=== PATIENT | female | born 1965 | race Asian ===

== ENCOUNTER 2018-09-09 23:48 | Emergency (ER) | payer OTHER ==
[2018-09-10 00:20] VITALS: BMI 29.0
[2018-09-10] MEDS ORDERED: SODIUM CHLORIDE 1,000 ML IV STA (01:07)
--- NOTE | 2018-09-10 01:09 | PDOC ---
Attending Attestation - HPI HPI: 09/10/18 01:26 The patient is a 53 year old female with hypothyroidism and fibroids who presents to the ED with complaints of vaginal bleeding, lightheadedness and palpitations. She states that three weeks ago, 15 days after her LMP, she began having light spotting which has since turned into heavy bleeding with clots, saturating 3-6 pads/day. She reports going for a biopsy which she has not gotten the results yet and was also started on control and tranexamic acid. However, this morning she developed palpitations and lightheadedness and was advised to come to the ED to check her H&H levels. Denies any abdominal pain , nausea, or vomiting. Denies any syncope, headache, focal neurological deficits, chest pain or shortness of breath. Denies any fevers or chills. - Medical Decision Making 09/10/18 01:31 Documentation prepared by Ingris Willoughby, acting as medical claims representative for Corina Jolly MD. <Ingris Willoughby - Last Filed: 09/10/18 01:31> - Resident Resident Name: Danielle Suarez - ED Attending Attestation I have performed the following: I have examined & evaluated the patient, The case was reviewed & discussed with the resident, I agree w/resident's findings & plan - Physicial Exam PE: 09/10/18 03:50 Agree with resident exam; Pt is borderline tachycardic @ 100bpm; she doesn't appear particularly pale; eyelids and fingertips are pink. Abd soft NT, ND Pt has no flank pain. Pt has minimal blood in the vault. - Medical Decision Making 09/10/18 22:54 repeat CBC at 4 hrs is stable. 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
[2018-09-10 01:39] LABS: BASO % 0.3 % (0-2.0); EOS % 8.3 % (0-4.5); HEMATOCRIT 29.9 % (32.4-45.2); HEMOGLOBIN 9.8 GM/dL (10.7-15.3); LYMPH % 28.3 % (8-40); MCH 28.4 pg (25.7-33.7); MCHC 32.9 g/dl (32.0-36.0); MEAN CELL VOLUME 86.3 fl (80-96); MEAN PLT VOLUME 9.1 fl (7.5-11.1); MONO % 7.9 % (3.8-10.2); NEUT % 55.2 % (42.8-82.8); PLATELET COUNT 421 K/MM3 (134-434); RBC 3.47 M/mm3 (3.60-5.2); WHITE BLOOD COUNT 8.2 K/mm3 (4.0-10.0)
[2018-09-10 01:56] LABS: URINE APPEARANCE CLEAR; URINE BILIRUBIN NEGATIVE (<2.0 mg/dL); URINE COLOR COLORLESS; URINE GLUCOSE (UA) NEGATIVE (NEGATIVE); URINE KETONE NEGATIVE (NEGATIVE); URINE LEUK ESTERASE NEGATIVE (NEGATIVE); URINE NITRITE NEGATIVE (NEGATIVE); URINE PROTEIN NEGATIVE (NEGATIVE); URINE UROBILINOGEN NEGATIVE mg/dL (0.2-1.0)
[2018-09-10 01:57] LABS: HCG,QUALITATIVE URINE Negative
[2018-09-10 02:03] LABS: ALBUMIN 3.8 g/dl (3.4-5.0); ALK PHOS 80 U/L (45-117); ANION GAP 7 MMOL/L (8-16); BILIRUBIN,TOTAL 0.2 mg/dL (0.2-1); BLOOD UREA NITROGEN 12 mg/dL (7-18); CALCIUM 8.4 mg/dL (8.5-10.1); CHLORIDE 105 mmol/L (98-107); CO2 25 mmol/L (21-32); CREATININE 0.9 mg/dL (0.55-1.3); GLUCOSE,RANDOM 118 mg/dL (74-106); POTASSIUM 3.8 mmol/L (3.5-5.1); SGOT/AST 23 U/L (15-37); SGPT/ALT 30 U/L (13-61); SODIUM 137 mmol/L (136-145); TOT PROT 7.5 g/dl (6.4-8.2)
--- NOTE | 2018-09-10 02:09 | PDOC ---
History of Present Illness - General Chief Complaint: Vaginal Bleeding Stated Complaint: VAGINAL BLEEDING Time Seen by Provider: 09/10/18 00:14 History Source: Patient Exam Limitations: Language Barrier - History of Present Illness Initial Comments: 09/10/18 02:04 Pt is a 53yo f with PMH of hypothyroid, uterine fibroid presenting to ED with complaints of vaginal bleeding, palpitations, headache/lightheadedness. Pt has been having periods monthly that last about 1 week but around 3 weeks ago, pt noticed spotting for 5 days followed by heavy bleeding with clots. Pt states she uses around 3-6 or 7 pads a day. She went to [facility] on Tuesday. She had an ultrasound and biopsy done. Pt states she would not get results for a while. She was given OCP and tranexamic acid. She was told that if she was experiencing palpitations that she should come to the ED. Pt is having some LLQ abdominal pain as well. Denies n/v/d, fevers, urinary symptoms, syncope, sob, chest pain, changes in vision, neurological deficits. She used 3 pads today. 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: H PMH: see hpi PSH: thyroid surgery, Meds: levothyroxine, ocp, tranexamic acid Social: denies Allergies: nkda Past History - Past Medical History Allergies/Adverse Reactions: Allergies Allergy/AdvReac Type Severity Reaction Status Date / Time No Known Allergies Allergy Verified 09/10/18 00:18 Home Medications: Ambulatory Orders Levothyroxine [Synthroid -] 125 mcg PO DAILY 09/10/18 COPD: No CHF: No HTN: No Hypercholesterolemia: No Thyroid Disease: Yes - Reproductive History (#): 2 Para: 2 - Immunization History Immunization Up to Date: Yes - Suicide/Smoking/Psychosocial Hx Smoking History: Never smoked Have you smoked in the past 12 months: No Information on smoking cessation initiated: No Hx Alcohol Use: No Drug/Substance Use Hx: No Review of Systems - Review of Systems Constitutional: No: Symptoms Reported HEENTM: No: Symptoms Reported Respiratory: No: Symptoms reported Cardiac (ROS): Yes: Lightheadedness, Palpitations. No: Chest Pain, Syncope ABD/GI: Yes: Abdominal cramping (LLQ). No: Constipated, Diarrhea, Nausea, Vomiting : Yes: Other (vaginal bleeding) Musculoskeletal: No: Symptoms Reported Integumentary: No: Symptoms Reported Neurological: Yes: Headache. No: Numbness, Tingling, Tremors *Physical Exam - Vital Signs Last Vital Signs Temp Pulse Resp BP Pulse Ox 98.0 F 95 H 20 139/78 99 09/10/18 00:19 09/10/18 00:19 09/10/18 00:19 09/10/18 00:19 09/10/18 00:19 - Physical Exam General Appearance: Yes: Nourished, Appropriately Dressed. No: Apparent Distress HEENT: positive: EOMI, JOLENE. negative: Pale Conjunctivae Neck: positive: Trachea midline, Supple. negative: Lymphadenopathy (R), Lymphadenopathy (L) Respiratory/Chest: positive: Lungs Clear, Normal Breath Sounds. negative: Crackles, Rales, Rhonchi, Stridor, Wheezing Cardiovascular: positive: Regular Rhythm, S1, S2, Tachycardia. negative: Edema , JVD, Murmur Female Pelvic Exam: positive: normal external exam, cervical os closed, vaginal bleeding. negative: adnexal tenderness Gastrointestinal/Abdominal: positive: Normal Bowel Sounds, Soft. negative: Distended, Guarding, Rebound, Tenderness Musculoskeletal: negative: CVA Tenderness Extremity: positive: Normal Capillary Refill Integumentary: positive: Normal Color, Dry, Warm. negative: Pale Neurologic: positive: dispensing optician II-XII NML intact, Fully Oriented, Alert, Normal Mood/ Affect, Normal Response, Motor Strength 5/5 ED Treatment Course - LABORATORY CBC & Chemistry Diagram: 09/10/18 05:58 09/10/18 00:21 - ADDITIONAL ORDERS Additional order review: Laboratory Results 09/10/18 09/10/18 09/10/18 01:23 00:21 00:21 Sodium 137 Potassium 3.8 Chloride 105 Carbon Dioxide 25 Anion Gap 7 L BUN 12 Creatinine 0.9 Creat Clearance w eGFR > 60 Random Glucose 118 H Calcium 8.4 L Total Bilirubin 0.2 AST 23 ALT 30 Alkaline Phosphatase 80 Troponin I < 0.02 Total Protein 7.5 Albumin 3.8 Urine HCG, Qual Negative Medical Decision Making - Medical Decision Making Pt is a 53yo f with PMH of hypothyroid, uterine fibroid presenting to ED with complaints of vaginal bleeding, palpitations, headache/lightheadedness. Vitals: wnl PE: closed os with minimal blood in vaginal vault, normal conjunctiva, not pale. Will check cbc for hgb level. No priors to compare to. EKG, UA. will give fluids. hgb 9.8. Will check again in 4 hours 09/10/18 06:14 EKG: nsr Hgb 8.4 however other counts also decreased most likely due to dilutional effects. Pt reported less bleeding. Has pcp follow up, vitals wnl, ambulatory. Can be dc home. pt agreed to plan. *DC/Admit/Observation/Transfer Diagnosis at time of Disposition: Vaginal bleeding - Discharge Dispostion Disposition: HOME Condition at time of disposition: Good Decision to Admit order: No - Referrals Referrals: Bo Dia [Primary Care Provider] - Yakelin Lomax DO [Staff Physician] - - Patient Instructions Printed Discharge Instructions: DI for Vaginal Bleeding Additional Instructions: You were seen here today for evaluation of vaginal bleeding. All of your tests were normal. Please continue to see your stockbroker for further management of your symptoms. Come back to the emergency room if: bleeding gets worse, you feel lightheaded, you have palpitations, you have pain or if any new concerning symptom develops. Thank you - Post Discharge Activity
[2018-09-10 02:13] LABS: EPI CELLS RARE /HPF (FEW)
[2018-09-10 02:56] LABS: INR 0.82 (0.83-1.09); PROTHROMBIN TIME (PATIENT) 9.7 SEC (9.7-13.0)
[2018-09-10 02:58] LABS: ACTIVATED PTT 18.6 SECONDS (25.2-36.5)
[2018-09-10 06:08] LABS: BASO % 1.4 % (0-2.0); EOS % 8.5 % (0-4.5); HEMOGLOBIN 8.6 GM/dL (10.7-15.3); LYMPH % 25.1 % (8-40); MCH 28.5 pg (25.7-33.7); MCHC 33.1 g/dl (32.0-36.0); MEAN CELL VOLUME 86.1 fl (80-96); MEAN PLT VOLUME 8.7 fl (7.5-11.1); PLATELET COUNT 344 K/MM3 (134-434); RBC 3.02 M/mm3 (3.60-5.2); WHITE BLOOD COUNT 7.4 K/mm3 (4.0-10.0)
[2018-09-10 06:47] VITALS: BP 126/78; PULSE 99; TEMP 98.5
--- NOTE | 2018-09-10 11:06 | EKG ---
Test Reason : Blood Pressure : / mmHG Vent. Rate : 083 BPM Atrial Rate : 083 BPM P-R Int : 156 ms QRS Dur : 070 ms QT Int : 372 ms P-R-T Axes : 053 030 027 degrees QTc Int : 437 ms NORMAL SINUS RHYTHM NORMAL ECG NO PREVIOUS ECGS AVAILABLE Confirmed by BERNABE MCGUIRE MD ([id number]) on 09/10/2018 11:06:13 AM Referred By: Confirmed By:BERNABE MCGUIRE MD
== END 2018-09-10 06:48 | disposition home or self-care (01) ==
LOC: JER 23:48
PROC: 3E0337Z Introduction of Electrolytic and Water Balance Substance into Peripheral Vein, Percutaneous Approach (ICD-10-PCS; principal; 2018-09-09)
DX: N93.8 Other specified abnormal uterine and vaginal bleeding (principal); E03.9 Hypothyroidism, unspecified; Z86.2 Personal history of diseases of the blood and blood-forming organs and certain disorders involving the immune mechanism
CPT/HCPCS: 36415; 80053; 81003; 81015; 84443; 84484; 84703; 85025; 85610; 85730; 86850; 86900; 86901; 93005; 93010; 99284-25; J7030

== ENCOUNTER 2018-10-05 12:32 | Day surgery (SDC) | payer OTHER ==
[2018-10-03 12:43] VITALS: BMI 27.9
[2018-10-05] MEDS ORDERED: IBUPROFEN 800 MG/8 ML IJ IVPB PRN (14:00)
[2018-10-05] MEDS ORDERED: LACTATED RINGERS SOLUTION 1,000 ML IV SCH (14:00)
[2018-10-05] MEDS ORDERED: ACETAMINOPHEN 325 MG TABLET (FP) PO PRN (14:00)
--- NOTE | 2018-10-05 14:00 | HP ---
History & Physical Update - History History: No Change - Physical Physical: No Change - Assessment Assessment: No Change - Plan Plan: No Change (Agree with H&P from 10/04/18 - AUB/endo polyp for hysteroscopic resection)
[2018-10-05] MEDS ORDERED: KETOROLAC TROMETHAMINE 30 MG/1 ML VIAL ONE (14:06)
[2018-10-05] MEDS ORDERED: PROPOFOL 20 ML ONE (14:06)
[2018-10-05] MEDS ORDERED: DEXAMETHASONE SOD PHOSPHATE 4 MG/1 ML VIAL ONE (14:06)
[2018-10-05] MEDS ORDERED: oxyCODONE HCL 5 MG TABLET PO PRN (14:54)
[2018-10-05] MEDS ORDERED: PROMETHAZINE HCL 25 MG/1 ML VIAL IVPUSH PRN (14:54)
[2018-10-05] MEDS ORDERED: ONDANSETRON 4 MG/2 ML VIAL IVPUSH PRN (14:54)
[2018-10-05] MEDS ORDERED: oxyCODONE HCL 5 MG TABLET ONE (17:05)
[2018-10-05 18:11] VITALS: BP 130/70; PULSE 68; TEMP 97.8
--- NOTE | 2018-10-09 17:32 | PATH ---
Surgical Pathology Report Patient Name: SERGIO DOE [facility]. Rec. #: [id number] /Age/Gender: 1965 (Age: 53) / F Account: [id number] Location: [facility] SURGICAL Taken: 10/05/2018 Received: 10/06/2018 Reported: 10/09/2018 Physicians: Yakelin Lomax M.D. Specimen(s) Received UTERINE CONTENTS/ POLYP AND ENDOMETRIAL CURETTINGS Clinical History Endometrial polyp/abnormal bleeding Final Diagnosis ENDOMETRIAL CURETTINGS, DILATION AND CURETTAGE: SMALL ENDOMETRIAL POLYP AND ENDOMETRIUM WITH GLANDULAR AND STROMAL BREAKDOWN ADMIXED WITH BLOOD. Electronically Signed Nalini Mcbride M.D. Gross Description Received in formalin labeled "polyp, endometrial curettings," is a 3.0 x 2.0 x 0.3 cm aggregate of fields red soft tissue fragments admixed with blood clot. The formalin is filtered and the specimen is entirely submitted in one cassette. /10/06/2018 saudi10/06/2018
--- NOTE | 2018-10-25 12:27 | OP ---
Operative Note - Note: Operative Date: 10/05/18 (dictatoin [id number]) Pre-Operative Diagnosis: Abnormal uterine bleeding, endometrial polyp Operation: Hysteroscopic polypectomy, suction D&C Findings: endometrial polyp Post-Operative Diagnosis: Same as Pre-op Surgeon: Yakelin Lomax Specimens Removed: endometrial polyp Estimated Blood Loss (mls): 5 Operative Report Dictated: Yes
--- NOTE | 2018-10-26 07:31 | OP ---
DATE OF OPERATION: 10/05/2018 PREOPERATIVE DIAGNOSIS: Abnormal uterine bleeding and endometrial polyps. POSTOPERATIVE DIAGNOSIS: Abnormal uterine bleeding and endometrial polyps. PROCEDURE: Hysteroscopic polypectomy, suction dilatation and curettage. SURGEON: Yakelin Lomax MD ANESTHESIA: General by Candido Mitchell MD. COMPLICATIONS: None. ESTIMATED BLOOD LOSS: 5 mL. SPECIMENS REMOVED: Endometrial polyps. COUNTS: Sponge,needle, and instrument counts correct. DISPOSITION: Stable to PACU. BRIEF HISTORY AND PROCEDURE: Patient is a 53-year-old female who had been seen in the office with complaints of abnormal uterine bleeding. Her endometrial biopsy was benign. However, she stated she continued to have bleeding, and on hysterosonogram was noted to have endometrial polyps. She elected to undergo resection and consents were signed in the office. The patient was admitted to the hospital October 05, 2018, and consents were reconfirmed. She was taken back to the operating room, put in the dorsal lithotomy position and given anesthesia by Dr. Candido Mitchell without difficulty. She was prepped and draped in the usual sterile fashion, and a hard time-out was performed. A speculum was placed inside the vagina, and the anterior lip of the cervix was grasped with a single-tooth tenaculum, and the cervix was dilated to accommodate an resectoscope, which was advanced to the fundus of the uterus. Endometrial polyps were noted, which were resected in several passes with the resectoscope device. A suction dilatation and curettage was performed to remove all remaining uterine tissue and sharp dilatation and curettage was performed to get adequate uterine sampling. One final look with the hysteroscope revealed no evidence of uterine perforation or trauma. All instruments were removed from the vagina. Sponge and instrument counts were reported to be correct. Bleeding was noted from the tenaculum sites, and a single stitch of a 3-0 Vicryl was placed to achieve hemostasis. Instrument, sponge, and needle counts were reported to be correct. The patient tolerated the procedure well and was recovering in stable condition in the PACU after the procedure. YAKELIN LOMAX DO /[id number]
== END 2018-10-05 18:12 | disposition home or self-care (01) ==
LOC: JASU-SURG 12:32
PROVIDERS: ATTEND Obstetrics & Gynecology
PROC: 0UJD8ZZ Inspection of Uterus and Cervix, Via Natural or Artificial Opening Endoscopic (ICD-10-PCS; 2018-10-05)
PROC: 0UB97ZX Excision of Uterus, Via Natural or Artificial Opening, Diagnostic (ICD-10-PCS; principal; 2018-10-05 14:30)
PROC: 0UDB7ZX Extraction of Endometrium, Via Natural or Artificial Opening, Diagnostic (ICD-10-PCS; 2018-10-05 14:30)
DX: N93.9 Abnormal uterine and vaginal bleeding, unspecified (principal); N84.0 Polyp of corpus uteri
CPT/HCPCS: 84703; 86850; 86900; 86901; 88305-TC; 94760

== ENCOUNTER 2019-03-19 15:13 | Emergency (ER) | payer OTHER ==
[2019-03-19 15:25] VITALS: BMI 26.6
--- NOTE | 2019-03-19 16:33 | PDOC ---
History of Present Illness - General Chief Complaint: Vaginal Bleeding Stated Complaint: VAGINAL BLEEDING - History of Present Illness Initial Comments: The pt is a 53F w/ a history of hypothyroidism, previous uterine polyp s/p polypectomy and D&C in 10/2018 who presents for evaluation of 2 weeks of vaginal bleeding. The pt was seen by Dr. Lomax on Tuesday where she reports having a normal TVUS. She presents today for concern of persistent bleeding. She endorses 3 days of associated lightheadedness but denies LOC or fall. She reports similar bleeding with her previous uterine polyp. Denies fevers/chills, chest pain, SOB, abdominal pain, N/V/C/D, dysuria, hematuria, or blood in her stool. Denies unintentional weight loss 03/19/19 16:53 Past History - Past Medical History Allergies/Adverse Reactions: Allergies Allergy/AdvReac Type Severity Reaction Status Date / Time No Known Allergies Allergy Verified 03/19/19 15:18 Home Medications: Ambulatory Orders Levothyroxine Sodium [Synthroid] 137 mcg PO DAILY 03/19/19 Norethindrone-E.estradiol-Iron [Taytulla 1 mg-20 Mcg Capsule] 1 each PO DAILY Sertraline HCl 25 mg PO DAILY 03/19/19 Tranexamic Acid 1,300 mg PO TID 03/19/19 Anemia: Yes (due to bleeding) Asthma: No Cancer: No Cardiac Disorders: No CVA: No COPD: No CHF: No Dementia: No Diabetes: No GI Disorders: No Disorders: No HTN: No Hypercholesterolemia: No Liver Disease: No Seizures: No Thyroid Disease: Yes - Reproductive History (#): 2 Para: 2 - Immunization History Immunization Up to Date: Yes - Suicide/Smoking/Psychosocial Hx Smoking History: Never smoked Have you smoked in the past 12 months: No Information on smoking cessation initiated: No Hx Alcohol Use: No Drug/Substance Use Hx: No Substance Use Type: None Hx Substance Use Treatment: No Review of Systems - Review of Systems Able to Perform ROS?: Yes Comments:: GENERAL/CONSTITUTIONAL: No fever or chills HEAD, EYES, EARS, NOSE AND THROAT: No change in vision. No ear pain or discharge. No sore throat CARDIOVASCULAR: No chest pain or shortness of breath RESPIRATORY: Denies cough, hemoptysis GASTROINTESTINAL: No nausea, vomiting, diarrhea or constipation GENITOURINARY: No dysuria, frequency, or change in urination MUSCULOSKELETAL: No joint or muscle swelling or pain. No neck or back pain SKIN: No rash NEUROLOGIC: No headache, vertigo, loss of consciousness, or change in strength/ sensation ENDOCRINE: No increased thirst. No abnormal weight change HEMATOLOGIC/LYMPHATIC: No anemia, easy bleeding, or history of blood clots ALLERGIC/IMMUNOLOGIC: No hives or skin allergy 03/19/19 16:32 Is the patient limited Lithuanian proficient: No *Physical Exam - Vital Signs Last Vital Signs Temp Pulse Resp BP Pulse Ox 97.8 F 88 17 137/85 99 03/19/19 15:21 03/19/19 15:21 03/19/19 15:21 03/19/19 15:21 03/19/19 15:21 - Physical Exam Comments: GENERAL: Awake, alert, and oriented to person/place/time, in no acute distress HEAD: No signs of trauma, normocephalic, atraumatic EYES: PERRLA, EOMI, sclera anicteric, conjunctiva clear ENT: Hearing grossly normal, nares patent, oropharynx clear without exudates. Moist mucosa LUNGS: No distress, speaks full sentences, clear to auscultation bilaterally HEART: Regular rate and rhythm, normal S1 and S2, no murmurs appreciated, peripheral pulses normal and equal bilaterally ABDOMEN: Soft, nontender, normoactive bowel sounds. No guarding, no rebound EXTREMITIES: Normal inspection, Normal range of motion, no edema. No clubbing or cyanosis NEUROLOGICAL: Cranial nerves II through XII grossly intact. Normal speech, normal gait, no focal sensorimotor deficits SKIN: Warm, Dry Pelvic External genitalia unremarkable Speculum exam with small blood in vaginal canal Vaginal wall mucosa is unremarkable Cervix visualized and is closed w/ small amount of blood from os Bimanual exam without cervical motion tenderness, adnexal tenderness or any masses appreciated 03/19/19 16:32 General Appearance: Yes: Nourished ED Treatment Course - LABORATORY CBC & Chemistry Diagram: 03/19/19 17:47 03/19/19 17:47 Medical Decision Making - Medical Decision Making ED Course Labs sent Will defer US at this time as pt has close OB f/u and reports normal US three days prior to presentation Will ensure pt is not acute on chronic anemic 03/19/19 17:51 Pt now reports palpitations, will at Trop I, CXR, and ECG to evaluate for ACS 03/19/19 17:55 No leukocytosis No anemia 03/19/19 17:58 Trop I neg ECG w/ NSR no evidence of ischemia Lytes wnl No BAKARI Plan for D/C w/ OB f/u Discharge instructions and return precautions given Pt in agreement and verbalized understanding Dispo: home 03/19/19 18:47 *DC/Admit/Observation/Transfer Diagnosis at time of Disposition: Vaginal bleeding - Discharge Dispostion Disposition: HOME Condition at time of disposition: Stable Decision to Admit order: No - Referrals Referrals: Yakelin Lomax DO [Primary Care Provider] - - Patient Instructions Printed Discharge Instructions: DI for Vaginal Bleeding Additional Instructions: You were seen in the Emergency Department for vaginal bleeding. Your labs were unremarkable. Review the handout provided at discharge. Follow up with your OBGYN. Return to the Emergency Department if your symptoms worsen, you have dizziness/falls, abdominal pain, vomiting, or any new/concerning symptoms. - Post Discharge Activity
[2019-03-19 17:52] LABS: BASO % 1.1 % (0-2.0); EOS % 2.9 % (0-4.5); LYMPH % 25.2 % (8-40); MCH 29.2 pg (25.7-33.7); MCHC 33.4 g/dl (32.0-36.0); MEAN CELL VOLUME 87.3 fl (80-96); MONO % 7.7 % (3.8-10.2); NEUT % 63.1 % (42.8-82.8); PLATELET COUNT 289 K/MM3 (134-434); RBC 4.12 M/mm3 (3.60-5.2); RDW 17.1 % (11.6-15.6); WHITE BLOOD COUNT 7.1 K/mm3 (4.0-10.0)
[2019-03-19 18:11] VITALS: BP 138/97; PULSE 85; TEMP 98.9
[2019-03-19 18:23] LABS: ALK PHOS 80 U/L (45-117); ANION GAP 7 MMOL/L (8-16); BILIRUBIN,TOTAL 0.2 mg/dL (0.2-1); BLOOD UREA NITROGEN 11 mg/dL (7-18); CALCIUM 8.5 mg/dL (8.5-10.1); CHLORIDE 105 mmol/L (98-107); CO2 28 mmol/L (21-32); CREATININE 0.8 mg/dL (0.55-1.3); GLUCOSE,RANDOM 101 mg/dL (74-106); POTASSIUM 3.8 mmol/L (3.5-5.1); SGOT/AST 25 U/L (15-37); SGPT/ALT 34 U/L (13-61); SODIUM 140 mmol/L (136-145); TOT PROT 7.5 g/dl (6.4-8.2)
--- NOTE | 2019-03-19 18:28 | PDOC ---
Documentation entered by Bing Hedrick SCRIBE, acting as scribe for Page Wilson MD. Page Wilson MD: This documentation has been prepared by the Floridalma arthur Daisy, SCRIBE, under my direction and personally reviewed by me in its entirety. I confirm that the documentation accurately reflects all work, treatment, procedures, and medical decision making performed by me. Attending Attestation - Resident Resident Name: Jose Mejia - ED Attending Attestation I have performed the following: I have examined & evaluated the patient, The case was reviewed & discussed with the resident, I agree w/resident's findings & plan - HPI HPI: 03/19/19 18:09 The patient is a 53YOF with a PMH of hypothyroidism, previous uterine polyp s/p polypectomy and D&C in 10/2018 who presents for vaginal bleeding for the past 2 weeks. She follows with Dr. Lomax, CUSTOMER SALES REPRESENTATIVE, and reports having an normal transvaginal US 3 days ago. Patient is on TXA and control. Denies fevers/chills, cp, SOB, abdominal pain, N/V/C/D, urinary symptoms or blood in her stool. Allergies: NKDA - Physicial Exam PE: 03/19/19 18:15 53 yo female seen by Dr Lomax on Tuesday for irregular menses -she had an US done on Tuesday and was started on TXA for bleeding 03/19/19 18:20 wnwd 53 yo female with vaginal bleeding head ncat neck supple lungs cta b/l cvs [id number] abd nontender extremities no edema pelvic exam done by Dr Mejia skin warm and dry neuro axox3,ambulatory - Medical Decision Making 03/19/19 18:25 Instructed to continue her T x-ray, control pills as prescribed by her outside industrial sales representative. EKG is normal sinus rhythm at 76 bpm there is no evidence of any acute ischemia , her cardiac enzymes are negative. She does not require any blood transfusions. She is not anemic, hemoglobin is 12, she has no orthostatic hypotension or tachycardia. Impression dysfunctional uterine bleeding, perimenopausal changes. Plan continue medications prescribed by her outside industrial sales representative and outpatient follow- up with Dr. Nolasco
[2019-03-19 18:51] LABS: PROTHROMBIN TIME (PATIENT) 10.6 SEC (9.7-13.0)
[2019-03-19 19:14] LABS: ACTIVATED PTT 30.3 SECONDS (25.2-36.5); INR 0.9 (0.83-1.09)
--- NOTE | 2019-03-20 14:27 | EKG ---
Test Reason : Blood Pressure : / mmHG Vent. Rate : 076 BPM Atrial Rate : 076 BPM P-R Int : 148 ms QRS Dur : 074 ms QT Int : 386 ms P-R-T Axes : 039 024 028 degrees QTc Int : 434 ms NORMAL SINUS RHYTHM NONSPECIFIC ST ABNORMALITY BORDERLINE ECG Confirmed by MD ASHLEY, QUINTON ([id number]) on 03/20/2019 2:27:04 PM Referred By: Confirmed By:QUINTON RAMIREZ MD
== END 2019-03-19 18:43 | disposition home or self-care (01) ==
LOC: JER 15:13
DX: N93.8 Other specified abnormal uterine and vaginal bleeding (principal); N92.4 Excessive bleeding in the premenopausal period
CPT/HCPCS: 36415; 80053; 84484; 85025; 85610; 85730; 86850; 86900; 86901; 93005; 93010; 99283-25

== ENCOUNTER 2020-06-05 08:56 | Observation (INO) | payer OTHER ==
--- NOTE | 2020-06-05 09:14 | PDOC ---
History of Present Illness - General Chief Complaint: Chest Pain Stated Complaint: VOMITING,NAUSEA Time Seen by Provider: 06/05/20 09:14 - History of Present Illness Initial Comments: Pt is a 54yo F with a history of hypothyroidism, HTN, HLD who presents with chest pain. Pt states that she has had similar pain x3 weeks, after meals. Says it feels like heaviness/air in chest, radiating to neck, arm, and back. States that pain is improved after vomiting. She comes in today because pain was not associated with eating, onset of pain was 6:30am. She has seen GI and is being treated for acid reflux. Associated symptoms: n/v, SOB, diaphoresis, weakness. Denies f/c, cough, wheezing, abdominal pain. PCP: Adam PMH: see HPI PSHx: polypectomy All: NKDA Social: denies smoking, ETOH, illicit drug use Past History - Medical History Allergies/Adverse Reactions: Allergies Allergy/AdvReac Type Severity Reaction Status Date / Time No Known Allergies Allergy Verified 06/05/20 09:02 Home Medications: Ambulatory Orders Sertraline HCl 25 mg PO DAILY 03/19/19 Dexlansoprazole [Dexilant] 60 mg PO DAILY 06/05/20 Linaclotide [Linzess] 72 mcg PO DAILY 06/05/20 Metoclopramide HCl [Reglan] 5 mg PO DAILY 06/05/20 Mirtazapine 7.5 mg PO HS 06/05/20 Aspirin [Adult Aspirin Regimen] 81 mg PO DAILY #30 tablet.dr 06/06/20 Atorvastatin Ca [Lipitor] 40 mg PO HS #30 tablet 06/06/20 Levothyroxine Sodium [Synthroid] 100 mcg PO DAILY #15 tablet 06/06/20 Metoprolol Succinate [Toprol Xl] 12.5 mg PO DAILY #30 tab.er.24h 06/06/20 Anemia: Yes (due to bleeding) Asthma: No Cancer: No Cardiac Disorders: No CVA: No COPD: No CHF: No Dementia: No Diabetes: No (PRE DIABETES) GI Disorders: Yes (ACID REFLUX) Disorders: No HTN: No Hypercholesterolemia: Yes Liver Disease: No Seizures: No Thyroid Disease: Yes - Reproductive History (#): 2 Para: 2 - Immunization History Immunization Up to Date: Yes - Psycho-Social/Smoking History Smoking History: Never smoked Have you smoked in the past 12 months: No Information on smoking cessation initiated: No - Substance Abuse Hx (Audit-C & DAST Scrn) How often the patient has a drink containing alcohol: Never Score: In Men: 4 or > Positive; In Women: 3 or > Positive: 0 Screen Result (Pos requires Nsg. Audit-10AR): Negative In the last yr the pt used illegal drug/Rx for NonMed reason: No Score: Yes response is considered Positive: 0 Screen Result (Positive result requires Nsg. DAST-10): Negative Review of Systems - Review of Systems Comments:: CONSTITUTIONAL:Reports diaphoresis, weakness, denies fever, chills CARDIOVASCULAR:reports chest pain, palpitations RESPIRATORY:Reports SOB, denies cough, wheezing GASTROINTESTINAL: Reports n/v, constipation (chronic), denies abdominal pain, melena, hematochezia GENITOURINARY:denies dysuria, frequency, urgency, hematuria NEUROLOGIC:denies headache, loss of consciousness *Physical Exam - Vital Signs Last Vital Signs Temp Pulse Resp BP Pulse Ox 98.5 F 96 H 17 129/87 100 06/05/20 08:59 06/05/20 08:59 06/05/20 08:59 06/05/20 08:59 06/05/20 08:59 Heart Score/ECG Review - History History: Moderately suspicious - Electrocardiogram EKG: Non specific repolarization disturbance - Age Age: 45-65 - Risk Factors Risk Factors Heart Score: Yes Hx Hypercholesterolemia, Yes Hx Hypertension Based on the list above the patient has:: 1-2 risk factors - Troponin Troponin: </= normal limit - Score Heart Score - Total: 4 ED Treatment Course - LABORATORY CBC & Chemistry Diagram: 06/06/20 06:38 06/06/20 06:38 Medical Decision Making - Medical Decision Making Ms. Villa is a 54yo F with PMH HTN, HLD, hypothyroid, fatty liver, who presents with chest pain Vital Signs Temp Pulse Resp BP Pulse Ox 98.5 F 96 H 17 129/87 99 06/05/20 08:59 06/05/20 08:59 06/05/20 08:59 06/05/20 08:59 06/05/20 09:34 DDx: ACS, dissection, Esophagitis, PE, GERD Plan: labs, EKG, CXR Labs: no anemia, no leukocytosis, electrolytes WNL, normal troponin Laboratory Results - last 24 hr 06/05/20 06/05/20 06/05/20 09:17 09:17 09:17 WBC 7.4 RBC 4.40 Hgb 12.9 Hct 38.7 MCV 88.0 MCH 29.4 MCHC 33.4 RDW 14.0 D Plt Count 283 MPV 9.9 Absolute Neuts (auto) 4.1 Neutrophils % 55.9 Lymphocytes % 32.7 D Monocytes % 9.2 Eosinophils % 1.3 Basophils % 0.9 Nucleated RBC % 0 PT with INR 11.60 INR 0.98 Sodium 137 Potassium 4.1 Chloride 103 Carbon Dioxide 27 Anion Gap 7 L BUN 9.0 Creatinine 0.7 Est GFR (CKD-EPI)AfAm 115.45 Est GFR (CKD-EPI)NonAf 99.62 Random Glucose 87 Calcium 8.8 Total Bilirubin 0.5 AST 30 ALT 36 Alkaline Phosphatase 87 Creatine Kinase 80 Troponin I 0.02 Total Protein 7.1 Albumin 3.7 HEART Score: 4 EKG: HR 90, normal sinus rhythm, New T wave inversions in V2-V6 not seen in [address] DENISE LY who accepted care for patient under admitting Dr. BARRINGTON MYERS Disposition Admit to tele obs Discharge - Discharge Information Problems reviewed: Yes Clinical Impression/Diagnosis: Chest pain Condition: Stable Disposition: HOME - Admission Yes - Follow up/Referral - Patient Discharge Instructions - Post Discharge Activity
--- NOTE | 2020-06-05 09:17 | PDOC ---
Discharge - Follow up/Referral Referrals: Yakelin Lomax DO [Primary Care Provider] - - Patient Discharge Instructions - Post Discharge Activity
[2020-06-05] MEDS ORDERED: ASPIRIN 81 MG CHEWABLE TABLETS PO ONE (09:40)
[2020-06-05] MEDS ORDERED: ASPIRIN 81 MG CHEWABLE TABLETS ONE (09:52)
[2020-06-05 10:02] LABS: BASO % 0.9 % (0-2.0); EOS % 1.3 % (0-4.5); HEMATOCRIT 38.7 % (32.4-45.2); HEMOGLOBIN 12.9 GM/dL (10.7-15.3); LYMPH % 32.7 % (8-40); MCH 29.4 pg (25.7-33.7); MCHC 33.4 g/dl (32.0-36.0); MEAN PLT VOLUME 9.9 fl (7.5-11.1); MONO % 9.2 % (3.8-10.2); NEUT % 55.9 % (42.8-82.8); PLATELET COUNT 283 K/MM3 (134-434); WHITE BLOOD COUNT 7.4 K/mm3 (4.0-10.0)
[2020-06-05 10:16] LABS: INR 0.98 (0.83-1.09); PROTHROMBIN TIME (PATIENT) 11.6 SEC (9.7-13.0)
[2020-06-05 10:36] LABS: ALBUMIN 3.7 g/dl (3.4-5.0); BILIRUBIN,TOTAL 0.5 mg/dL (0.2-1); CALCIUM 8.8 mg/dL (8.5-10.1); CREATININE 0.7 mg/dL (0.55-1.3); POTASSIUM 4.1 mmol/L (3.5-5.1); TOT PROT 7.1 g/dl (6.4-8.2)
--- NOTE | 2020-06-05 11:22 | PN ---
Teaching Attending Note Name of Resident: Valeriy Herrera ATTENDING PHYSICIAN STATEMENT I saw and evaluated the patient. I reviewed the resident's note and discussed the case with the resident. I agree with the resident's findings and plan as documented. SUBJECTIVE: Chest pain OBJECTIVE: Vital Signs Temperature 97.9 F 06/05/20 11:07 Pulse Rate 85 06/05/20 11:07 Respiratory Rate 20 06/05/20 11:07 Blood Pressure 135/90 06/05/20 11:07 O2 Sat by Pulse Oximetry (%) 100 06/05/20 11:07 General: Young male not in distress feels improved HEENT mucous membranes moist, no anemia, no jaundice, PERRLA, no nystagmus Neck: No JVD, supple, no bruit, thyroid palpably normal, normal carotid pulsa tions. Chest: Nontender, clear to auscultation bilaterally CVS: S1-S2 regular no murmur/gallop/rub Abdomen: Mild epigastric tenderness, nondistended, soft, bowel sounds present. Extremities: No edema., No Calf tenderness, pulses present MECHANICAL TECHNOLOGIST: AO X3 , no gross motor sensory deficit CBC,CMP WBC 7.4 K/mm3 (4.0-10.0) 06/05/20 09:17 RBC 4.40 M/mm3 (3.60-5.2) 06/05/20 09:17 Hgb 12.9 GM/dL (10.7-15.3) 06/05/20 09:17 Hct 38.7 % (32.4-45.2) 06/05/20 09:17 MCV 88.0 fl (80-96) 06/05/20 09:17 MCH 29.4 pg (25.7-33.7) 06/05/20 09:17 MCHC 33.4 g/dl (32.0-36.0) 06/05/20 09:17 RDW 14.0 % (11.6-15.6) D 06/05/20 09:17 Plt Count 283 K/MM3 (134-434) 06/05/20 09:17 MPV 9.9 fl (7.5-11.1) 06/05/20 09:17 Absolute Neuts (auto) 4.1 K/mm3 (1.5-8.0) 06/05/20 09:17 Neutrophils % 55.9 % (42.8-82.8) 06/05/20 09:17 Lymphocytes % 32.7 % (8-40) D 06/05/20 09:17 Monocytes % 9.2 % (3.8-10.2) 06/05/20 09:17 Eosinophils % 1.3 % (0-4.5) 06/05/20 09:17 Basophils % 0.9 % (0-2.0) 06/05/20 09:17 Nucleated RBC % 0 % (0-0) 06/05/20 09:17 Sodium 137 mmol/L (136-145) 06/05/20 09:17 Potassium 4.1 mmol/L (3.5-5.1) 06/05/20 09:17 Chloride 103 mmol/L (98-107) 06/05/20 09:17 Carbon Dioxide 27 mmol/L (21-32) 06/05/20 09:17 Anion Gap 7 MMOL/L (8-16) L 06/05/20 09:17 BUN 9.0 mg/dL (7-18) 06/05/20 09:17 Creatinine 0.7 mg/dL (0.55-1.3) 06/05/20 09:17 Est GFR (CKD-EPI)AfAm 115.45 06/05/20 09:17 Est GFR (CKD-EPI)NonAf 99.62 06/05/20 09:17 Random Glucose 87 mg/dL (74-106) 06/05/20 09:17 Calcium 8.8 mg/dL (8.5-10.1) 06/05/20 09:17 Total Bilirubin 0.5 mg/dL (0.2-1) 06/05/20 09:17 AST 30 U/L (15-37) 06/05/20 09:17 ALT 36 U/L (13-61) 06/05/20 09:17 Alkaline Phosphatase 87 U/L (45-117) 06/05/20 09:17 Creatine Kinase 80 U/L (26-192) 06/05/20 09:17 Troponin I 0.02 ng/ml (0.00-0.05) 06/05/20 09:17 Total Protein 7.1 g/dl (6.4-8.2) 06/05/20 09:17 Albumin 3.7 g/dl (3.4-5.0) 06/05/20 09:17 Chest x-ray: EKG: Normal sinus rhythm diffuse T wave inversion V1 to V5 new since previous EKG Active Medications Enoxaparin Sodium (Lovenox -) 40 mg SQ DAILY [facility] Famotidine (Pepcid -) 20 mg PO BID [facility] Levothyroxine Sodium 25 mcg/ (Levothyroxine Sodium 112 mcg) 137 mcg PO DAILY@0700 [facility] ASSESSMENT AND PLAN: 54 years old female history of hypothyroidism, longstanding GERD on omeprazole for past 5 years, today presented to ED for evaluation of retrosternal chest pain and burning sensation for the past 2 weeks as per patient, pain is starts burning/cutting sensation in epigastrium area to mid chest and back usually in the morning after having breakfast and nighttime after having dinner, associated nausea and vomiting that contents food makes clear l iquid no coffee grounds or blood in the vomitus, sometime midnight gets up with excessive gas formation and burning sensation, no change in exercise tolerance but feels short of breath while climbing stairs, patient visited [facility] operator office and she was prescribed Dexilant, Linzess, metoclopramide, Remeron as per patient she feels relieved after taking metoclopramide , no complaint of melena, in the ED work-up shows normal CBC CMP, EKG shows diffuse T wave inversion in chest leads Impression: Chest pain rule out ACS: Atypical retrosternal chest pain patient symptoms are consistent with a GERD considering EKG changes cardiac etiology need to be ruled out, admit to monitoring specialist for observation, follow-up serial cardiac enzyme and EKGs , echo, cardiology consult GERD: Patient has longstanding current symptoms are consistent with and EKG changes can be due to diffuse esophageal spasm, will start on Protonix 40 mg twice daily IV, metoclopramide 10 mg every 8 hours, diet as tolerated. GI consult. Hypothyroidism: Continue levothyroxine follow-up TSH level Anxiety/depression: Continue sertraline 25 mg bedtime
--- NOTE | 2020-06-05 12:34 | HP ---
CHIEF COMPLAINT: chest heaviness with feeling of air stuck in her chest PCP: HISTORY OF PRESENT ILLNESS: 54F w/ pmh of hypothyroidism, HTN, HLD, recent GERD diagnosis presents to [facility] for complaint of feeling midsternal chest pain described as a 9 of 10 severity "heaviness" with sensation of "air stuck" in her chest. Has been having similar symptoms for the last three weeks, usually after eating meals. The pain subsides after 10-15mins after taking TUMS. Sometimes the sensation is burning. She had attributed the sensation to her metronidazole prescription(which she takes with meals), started 1week prior. States that the Rx was prompted by sensation of burning pain with urination. Was seen by GI(Angel), two weeks prior for her postprandial chest burning. She was prescribed a bevy of new medications and had a plan for outpatient EGD + colonoscopy in Jun 2020. After report the continued post-prandial chest tightness, she was instructed to stop taking metronidazole. She was concerned today, bc she had the chest tightness/pressure with "air stuck" at ~6:30am today after waking up. No radiation in pain. She walked around which provided mild relief. Thinks pain has resolved at ~11:30am. Usually eats fatty meals and typically lays down on the couch afterwards to unwind with TV. Frequently wakes up with a bitter taste in the mouth. Denies h/o DM, stroke. Claims to be SOB after walking up 1 flight of stairs. 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 Has been social distancing. HPI supplemented by [place]-speaking Adult Son at bedside. ER course was notable for: (1) Tmax 98.5, HR 96 (2) EKG: with TWI in V2 - V6(new compared to normal EKG in 2019) (3) HEART 4 (4) ASA 325mg Recent Travel: denies PAST MEDICAL HISTORY: as above PAST SURGICAL HISTORY: uterine polypectomy Social History: Smoking: denies Alcohol: denies Drugs: denies Allergies No Known Allergies Allergy (Verified 06/05/20 09:02) HOME MEDICATIONS: Home Medications Medication Instructions Recorded Levothyroxine Sodium [Synthroid] 137 mcg PO DAILY 03/19/19 Sertraline HCl 25 mg PO DAILY 03/19/19 Dexlansoprazole [Dexilant] 60 mg PO 06/05/20 Linaclotide [Linzess] 72 mcg PO 06/05/20 Metoclopramide HCl [Reglan] 5 mg PO 06/05/20 Mirtazapine 7.5 mg PO 06/05/20 metroNIDAZOLE [Metronidazole] 250 mg PO 06/05/20 REVIEW OF SYSTEMS CONSTITUTIONAL: Absent: fever, chills, diaphoresis, generalized weakness, malaise, loss of appetite, weight change HEENT: Absent: rhinorrhea, nasal congestion, throat pain, throat swelling, difficulty swallowing, mouth swelling, ear pain, eye pain, visual changes CARDIOVASCULAR: chest pain, burning sternal pain Absent: chest pain, syncope, palpitations, irregular heart rate, lightheadedness, peripheral edema RESPIRATORY: Absent: cough, shortness of breath, dyspnea with exertion, orthopnea, wheezing, stridor, hemoptysis GASTROINTESTINAL: Absent: abdominal pain, abdominal distension, nausea, vomiting, diarrhea, constipation, melena, hematochezia GENITOURINARY: Absent: dysuria, frequency, urgency, hesitancy, hematuria, flank pain, genital pain MUSCULOSKELETAL: Absent: myalgia, arthralgia, joint swelling, back pain, neck pain SKIN: Absent: rash, itching, pallor HEMATOLOGIC/IMMUNOLOGIC: Absent: easy bleeding, easy bruising, lymphadenopathy, frequent infections ENDOCRINE: Absent: unexplained weight gain, unexplained weight loss, heat intolerance, cold intolerance NEUROLOGIC: Absent: headache, focal weakness or paresthesias, dizziness, unsteady gait, seizure, mental status changes, bladder or bowel incontinence PSYCHIATRIC: Absent: anxiety, depression, suicidal or homicidal ideation, hallucinations. PHYSICAL EXAMINATION Vital Signs - 24 hr 06/05/20 06/05/20 06/05/20 08:59 09:31 09:34 Temperature 98.5 F Pulse Rate 96 H Pulse Rate [ Left Radial] Respiratory 17 Rate Blood Pressure 129/87 Blood Pressure [Left Arm] O2 Sat by Pulse 100 99 99 Oximetry (%) 06/05/20 11:07 Temperature 97.9 F Pulse Rate Pulse Rate [ 85 Left Radial] Respiratory 20 Rate Blood Pressure Blood Pressure 135/90 [Left Arm] O2 Sat by Pulse 100 Oximetry (%) GENERAL: Awake, alert, and fully oriented, in no acute distress. HEAD: NC/AT EYES: sclera anicteric, conjunctiva clear. No lid lag. EARS, NOSE, THROAT: Moist mucous membranes. NECK: Normal range of motion, supple without lymphadenopathy, JVD, or masses. LUNGS: Breath sounds equal, clear to auscultation bilaterally. No wheezes, and no crackles. No accessory muscle use. Breathing comfortably on RA HEART: Regular rate and rhythm, normal S1 and S2 without murmur, rub or gallop. No chest wall tenderness ABDOMEN: Soft, nontender, not distended, no guarding, no rebound. No suprapubic tenderness MUSCULOSKELETAL: Normal range of motion at all joints. No bony deformities or tenderness. No CVA tenderness. UPPER EXTREMITIES: 2+ pulses, warm, well-perfused. No cyanosis. No clubbing. No peripheral edema. LOWER EXTREMITIES: 2+ pulses, warm, well-perfused. No calf tenderness. No peripheral edema. NEUROLOGICAL: Normal speech. Laboratory Results - last 24 hr 06/05/20 06/05/20 06/05/20 09:17 09:17 09:17 WBC 7.4 RBC 4.40 Hgb 12.9 Hct 38.7 MCV 88.0 MCH 29.4 MCHC 33.4 RDW 14.0 D Plt Count 283 MPV 9.9 Absolute Neuts (auto) 4.1 Neutrophils % 55.9 Lymphocytes % 32.7 D Monocytes % 9.2 Eosinophils % 1.3 Basophils % 0.9 Nucleated RBC % 0 PT with INR 11.60 INR 0.98 Sodium 137 Potassium 4.1 Chloride 103 Carbon Dioxide 27 Anion Gap 7 L BUN 9.0 Creatinine 0.7 Est GFR (CKD-EPI)AfAm 115.45 Est GFR (CKD-EPI)NonAf 99.62 Random Glucose 87 Calcium 8.8 Total Bilirubin 0.5 AST 30 ALT 36 Alkaline Phosphatase 87 Creatine Kinase 80 Troponin I 0.02 Total Protein 7.1 Albumin 3.7 ASSESSMENT/PLAN: 54F w/ pmh of hypothyroidism, HTN, HLD, recent GERD diagnosis presents to [facility] for complaint of feeling midsternal chest pain described as a 9 of 10 severity "heaviness" with sensation of "air stuck" in her chest. Pain is similiar to her post-pandrial GERD symptoms from previous weeks but today persisted longer than usual and at rest. Normal Vitals. EKG with new TWI in V2-V6. CP has resolved. HE ART score 6. Admitted to Tele Obs for ACS r/o. #unstable angina --possibly 2/2 to GERD vs esophageal spasm; less likely ACS, less likely myocarditis, less likely pericarditis > EKG: with TWI in V2 - V6(new compared to normal EKG in 2019) > HEART 4 > troponin neg x1 --fu rpt troponin - sp ASA 325mg - fu cholesterol panel, then consider starting statin - echo pending - Cardio consult(Gitig): --pending #hypothyroidism - cw home meds #GERD - protonix 40mb IVP BID, reglan PRN #HTN --normotensive for now - monitor vitals FEN - no mIVF - cholesterol/fat diet DVT PPX - lovenox Family Medical History Family Hx Cardiac Disorders: Father (HTN) Family Hx Diabetes: Mother Visit type - Emergency Visit Emergency Visit: Yes ED Registration Date: 06/05/20 Care time: The patient presented to the Emergency Department on the above date and was hospitalized for further evaluation of their emergent condition. - New Patient This patient is new to me today: Yes Date on this admission: 06/05/20 - Critical Care Critical Care patient: No ATTENDING PHYSICIAN STATEMENT I saw and evaluated the patient. I reviewed the resident's note and discussed the case with the resident. I agree with the resident's findings and plan as documented. SUBJECTIVE: OBJECTIVE: ASSESSMENT AND PLAN:
--- NOTE | 2020-06-05 12:42 | PDOC ---
Documentation entered by Lauren Gonzales SCRIBE, acting as scribe for Sharri North MD. Sharri North MD: This documentation has been prepared by the Janet arthur Brenda, SCRIBE, under my direction and personally reviewed by me in its entirety. I confirm that the documentation accurately reflects all work, treatment, procedures, and medical decision making performed by me. Attending Attestation - Resident Resident Name: TanMariela - ED Attending Attestation I have performed the following: I have examined & evaluated the patient, The case was reviewed & discussed with the resident, I agree w/resident's findings & plan, Exceptions are as noted - HPI HPI: 06/05/20 09:48 The patient is a 54 year old female, with a significant PMH of hypothyroidism and previous uterine polyp s/p polypectomy who presents to the emergency department for evaluation of 2 weeks of chest pain that radiates to her back. The patient notes that for the past 2 week she has had chest pain upon eating and the pain is alleviated by vomiting. She notes that the pain is waxing/waning, with the worse being at 9-10 in severity and coming down to 3-4 in severity. Patient notes that this morning, the chest pain was not accompanied by PO and she also experienced0 some shortness of breath. Per son, on the bedside he noted that for the past 6 months the patient has been increasingly been SOB when walking up stairs. Patient notes thats he had followed with Dr. Ortiz for GI and was put on antibiotics, and stopped them yesterday after speaking with him due to having severe side effects. The patient denies trauma. Denie headache and dizziness. Denies fever, chills, diarrhea and constipation. Denies dysuria, frequency, urgency and hematuria. Allergies: NKA Past surgical history: polypectomy Social history: No reported hx of tobacco use, alcohol use or illicit drug use. PCP: [facility] - Physicial Exam PE: 06/05/20 10:58 GENERAL: Awake, alert, and fully oriented, in no acute distress HEAD: No signs of trauma NECK: Normal ROM, supple, no lymphadenopathy, JVD, or masses LUNGS: Breath sounds equal, clear to auscultation bilaterally. No wheezes, and no crackles HEART: Regular rate and rhythm, normal S1 and S2, no murmurs, rubs or gallops ABDOMEN: Soft, nontender, normoactive bowel sounds. No guarding, no rebound. No masses EXTREMITIES: Normal range of motion, no edema. No clubbing or cyanosis. No cords, erythema, or tenderness NEUROLOGICAL: Cranial nerves II through XII grossly intact. Normal speech, normal gait SKIN: Warm, Dry, normal turgor, no rashes or lesions noted. - Medical Decision Making 06/05/20 12:33 pt presents to the ED complaining of chest pain that started this morning. EKG shows new T wave inversion in anterior and lateral leads. Initial troponin is negative. HEART score is 4. Will admit to medicine for rule out ACS. Discharge - Discharge Information Problems reviewed: Yes Clinical Impression/Diagnosis: Chest pain Condition: Stable Disposition: HOME - Follow up/Referral - Patient Discharge Instructions - Post Discharge Activity
[2020-06-05] MEDS ORDERED: FAMOTIDINE 20 MG TABLET PO SCH (13:30)
--- NOTE | 2020-06-05 16:39 | ECHO ---
Name: BROOK SERGIO Exam:Adult Echocardiogram Study Date: 06/05/2020 02:35 PM Age: 54 yrs Reason For Study: R/O ACS Height: 65 in Weight: 161 lb BSA: 1.8 m2 MMode/2D Measurements & Calculations IVSd: 1.1 cm Ao root diam: 2.9 cm LVIDd: 4.4 cm LA dimension: 3.4 cm LVIDs: 2.5 cm ACS: 2.0 cm LVPWd: 1.1 cm LVPWs: 1.0 cm EDV(Teich): 87.4 ml ESV(Teich): 21.6 ml LVOT diam: 2.3 cm TAPSE: 1.2 cm RV S Gustabo: 16.0 cm/sec Doppler Measurements & Calculations MV E max gustabo: 59.9 cm/sec MVA(VTI): 6.4 cm2 MV A max gustabo: 84.4 cm/sec MV V2 max: 76.6 cm/sec MV E/A: 0.71 MV max P.3 mmHg MV dec time: 0.23 sec MV V2 mean: 48.7 cm/sec MV mean P.1 mmHg MV V2 VTI: 16.5 cm Ao V2 max: 125.1 cm/sec LV V1 max P.3 mmHg Ao max P.3 mmHg LV V1 mean P.8 mmHg Ao V2 mean: 89.6 cm/sec LV V1 max: 125.9 cm/sec Ao mean P.6 mmHg LV V1 mean: 75.9 cm/sec Ao V2 VTI: 26.5 cm LV V1 VTI: 25.4 cm BECCA(I,D): 4.0 cm2 BECCA(V,D): 4.2 cm2 SV(LVOT): 105.0 ml PA V2 max: 96.4 cm/sec PA max P.7 mmHg Med Peak E' Gustabo: 6.1 cm/sec Med E/e': 9.8 Lat Peak E' Gustabo: 10.9 cm/sec Lat E/e': 5.5 Tech Comments Technically difficult study. Procedure A complete two-dimensional transthoracic echocardiogram was performed (2D, M-mode, Doppler and color flow Doppler). Left Ventricle The left ventricular size, thickness and function are normal. Ejection Fraction = 65-70%. The left ve ntricular wall motion is normal. Right Ventricle The right ventricle is normal in size and function. Atria Normal left and right atrial size and function. Mitral Valve There is no mitral regurgitation noted. Tricuspid Valve There is trace tricuspid regurgitation. There was insufficient TR detected to calculate RV systolic p ressure. Aortic Valve No hemodynamically significant valvular aortic stenosis. No aortic regurgitation is present. Pulmonic Valve There is no pulmonic valvular regurgitation. Great Vessels The aortic root is normal size. Pericardium/Pleura There is no pericardial effusion. Interpretation Summary The left ventricular size, thickness and function are normal The right ventricle is normal in size and function. There is trace tricuspid regurgitation. MD Geronimo Jones 06/05/2020 04:39 PM
--- NOTE | 2020-06-05 16:59 | CON.CARD ---
Cardiology Consult (text) - Consultation Consultation Note: cc: cp hpi: 54 f hx htn, hld, hypothyroid, gerd, here with cp. Pt has chronic gerd sxs that have been worse lately. Every time she eats afterwards she feels tightness along esophagus and she vomits and feels better. No cp when she doesn't eat. She also notices occasional day. No hx hrt dz, no prior cardiac testing. No palps dizzy loc pnd orthopnea le edema. pmh: per hpi psh: polypectomy social: no tob fam: no premature cad, scd ros: per hpi; all others nl meds: Home Medications Medication Instructions Recorded Levothyroxine Sodium [Synthroid] 137 mcg PO DAILY 03/19/19 Sertraline HCl 25 mg PO DAILY 03/19/19 Dexlansoprazole [Dexilant] 60 mg PO DAILY 06/05/20 Linaclotide [Linzess] 72 mcg PO DAILY 06/05/20 Metoclopramide HCl [Reglan] 5 mg PO DAILY 06/05/20 Mirtazapine 7.5 mg PO HS 06/05/20 pe: Vital Signs Period Temp Pulse Resp BP Sys/Ceballos Pulse Ox Last 24 Hr 97.9 F-99.4 F 78-96 17-20 129-135/87-91 99-100 nad no jvd rrr s1s2 nomrg cta bl nl eff aao3 no le e/c/c abd nt nd pos bs no jaundice diaphoresis pos dp pt no carotid bruits Laboratory Last Values WBC 7.4 K/mm3 (4.0-10.0) 06/05/20 09:17 RBC 4.40 M/mm3 (3.60-5.2) 06/05/20 09:17 Hgb 12.9 GM/dL (10.7-15.3) 06/05/20 09:17 Hct 38.7 % (32.4-45.2) 06/05/20 09:17 MCV 88.0 fl (80-96) 06/05/20 09:17 MCH 29.4 pg (25.7-33.7) 06/05/20 09:17 MCHC 33.4 g/dl (32.0-36.0) 06/05/20 09:17 RDW 14.0 % (11.6-15.6) D 06/05/20 09:17 Plt Count 283 K/MM3 (134-434) 06/05/20 09:17 MPV 9.9 fl (7.5-11.1) 06/05/20 09:17 Absolute Neuts (auto) 4.1 K/mm3 (1.5-8.0) 06/05/20 09:17 Neutrophils % 55.9 % (42.8-82.8) 06/05/20 09:17 Lymphocytes % 32.7 % (8-40) D 06/05/20 09:17 Monocytes % 9.2 % (3.8-10.2) 06/05/20 09:17 Eosinophils % 1.3 % (0-4.5) 06/05/20 09:17 Basophils % 0.9 % (0-2.0) 06/05/20 09:17 Nucleated RBC % 0 % (0-0) 06/05/20 09:17 PT with INR 11.60 SEC (9.7-13.0) 06/05/20 09:17 INR 0.98 (0.83-1.09) 06/05/20 09:17 Sodium 137 mmol/L (136-145) 06/05/20 09:17 Potassium 4.1 mmol/L (3.5-5.1) 06/05/20 09:17 Chloride 103 mmol/L (98-107) 06/05/20 09:17 Carbon Dioxide 27 mmol/L (21-32) 06/05/20 09:17 Anion Gap 7 MMOL/L (8-16) L 06/05/20 09:17 BUN 9.0 mg/dL (7-18) 06/05/20 09:17 Creatinine 0.7 mg/dL (0.55-1.3) 06/05/20 09:17 Est GFR (CKD-EPI)AfAm 115.45 06/05/20 09:17 Est GFR (CKD-EPI)NonAf 99.62 06/05/20 09:17 Random Glucose 87 mg/dL (74-106) 06/05/20 09:17 Calcium 8.8 mg/dL (8.5-10.1) 06/05/20 09:17 Total Bilirubin 0.5 mg/dL (0.2-1) 06/05/20 09:17 AST 30 U/L (15-37) 06/05/20 09:17 ALT 36 U/L (13-61) 06/05/20 09:17 Alkaline Phosphatase 87 U/L (45-117) 06/05/20 09:17 Creatine Kinase 80 U/L (26-192) 06/05/20 09:17 Troponin I 0.03 ng/ml (0.00-0.05) 06/05/20 13:18 C-Reactive Protein < 0.3 MG/DL (0.00-0.3) 06/05/20 13:18 Total Protein 7.1 g/dl (6.4-8.2) 06/05/20 09:17 Albumin 3.7 g/dl (3.4-5.0) 06/05/20 09:17 ecg: sr nl intervals no st changes, +twis v1-v6, new from prior cxr: clear echo 05/2020: nl lv/rv, no sig valve path a/p: 54 f hx htn, hld, hypothyroid, gerd, here with cp. cp, abnl ecg: -no signs acs or chf -cp is atypical, seems more GI related. However she does have day at times and ecg here with new TWI's so will eval further with nuclear stress test. Echo here unremarkable. htn: -stable off meds hypothyroid: -cont synthroid
[2020-06-05 20:59] LABS: EPI CELLS 6 /uL (0-25.1); HYALINE CASTS 0 /uL (0-3.1); PH,URINE 6.5 (5.0-8.0); URINE APPEARANCE CLEAR; URINE BACTERIA 547 /uL (0-1359); URINE BILIRUBIN NEGATIVE (NEGATIVE); URINE COLOR YELLOW; URINE GLUCOSE (UA) NEGATIVE (NEGATIVE); URINE KETONE NEGATIVE (NEGATIVE); URINE LEUK ESTERASE TRACE (NEGATIVE); URINE NITRITE NEGATIVE (NEGATIVE); URINE PROTEIN NEGATIVE (NEGATIVE); URINE RBC 10 /uL (0-23.9); URINE UROBILINOGEN 0.2 mg/dL (0.2-1.0); URINE WBC 13 /uL (0-25.8)
[2020-06-05] MEDS: PANTOPRAZOLE SODIUM 40 MG VIAL IVPUSH SCH (22:12)
[2020-06-06] MEDS: METOCLOPRAMIDE HCL 10 MG TABLET (FP) PO PRN ×2 (00:04→14:32)
[2020-06-06 00:29] VITALS: BMI 25.2
[2020-06-06 00:34] LABS: MAGNESIUM 1.9 mg/dL (1.8-2.4)
[2020-06-06] MEDS ORDERED: LEVOTHYROXINE NA 112 MCG TABLET (FP) ONE (05:18)
[2020-06-06] MEDS ORDERED: LEVOTHYROXINE NA 25 MCG TABLET (FP) ONE (05:18)
--- NOTE | 2020-06-06 06:23 | PN ---
Progress Note, Physician Chief Complaint: denies SOB/dizziness/palps TELE: NSR History of Present Illness: Atypical CP Dyspnea on exertion Abnl ECG - Current Medication List Current Medications: Active Medications Enoxaparin Sodium (Lovenox -) 40 mg SQ DAILY [facility] Levothyroxine Sodium 25 mcg/ (Levothyroxine Sodium 112 mcg) 137 mcg PO DAILY@0700 [facility] Last Admin: 06/06/20 06:13 Dose: 137 mcg Documented by: Metoclopramide HCl (Reglan -) 10 mg PO Q8H PRN PRN Reason: NAUSEA AND/OR VOMITING Last Admin: 06/06/20 00:04 Dose: 10 mg Documented by: Pantoprazole Sodium (Protonix Iv) 40 mg IVPUSH BID [facility] Last Admin: 06/05/20 22:12 Dose: 40 mg Documented by: Sertraline HCl (Zoloft -) 25 mg PO DAILY [facility] - Objective Vital Signs: Vital Signs Temperature 98.2 F 06/05/20 20:28 Pulse Rate 68 06/05/20 20:28 Respiratory Rate 18 06/05/20 20:28 Blood Pressure 122/68 06/05/20 20:28 O2 Sat by Pulse Oximetry (%) 96 06/05/20 20:28 Constitutional: Yes: No Distress, Calm Eyes: Yes: Conjunctiva Clear, EOM Intact Cardiovascular: Yes: Regular Rate and Rhythm Respiratory: Yes: CTA Bilaterally Gastrointestinal: Yes: Soft (nt) Edema: No Peripheral Pulses WNL: Yes Neurological: Yes: Alert, Oriented ...Motor Strength: WNL Labs: CBC, BMP 06/05/20 09:17 06/05/20 09:17 INR, PTT INR 0.98 (0.83-1.09) 06/05/20 09:17 Laboratory Tests 06/05/20 06/05/20 06/05/20 09:17 09:17 13:18 WBC Hgb Plt Count INR 0.98 Sodium Potassium Creatinine Magnesium Troponin I 0.02 0.03 TSH 06/06/20 06/06/20 06:38 06:38 WBC 6.8 Hgb 13.1 Plt Count 276 INR Sodium 142 Potassium 4.1 Creatinine 0.8 Magnesium 2.1 Troponin I TSH 0.04 L Assessment/Plan ecg: sr nl intervals no st changes, +twis v1-v6, new from prior echo 05/2020: nl lv/rv, no sig valve path a/p: 54 f hx htn, hld, hypothyroid, gerd, here with cp. cp, abnl ecg: enzymes negative -no signs acs or chf -cp is atypical, seems more GI related. However she does have day at times and ecg here with new TWI's so will eval further with nuclear stress test. Echo here unremarkable. htn: -stable off meds hypothyroid: -cont synthroid with dose adjustment as per primary team
[2020-06-06] MEDS ORDERED: LEVOTHYROXINE 25 MCG, LEVOTHYROXINE 112 MCG PO SCH (07:00)
[2020-06-06 08:16] LABS: BASO % 0.9 % (0-2.0); EOS % 1.4 % (0-4.5); HEMATOCRIT 39.2 % (32.4-45.2); HEMOGLOBIN 13.1 GM/dL (10.7-15.3); LYMPH % 26.1 % (8-40); MCH 29.7 pg (25.7-33.7); MCHC 33.4 g/dl (32.0-36.0); MEAN CELL VOLUME 88.9 fl (80-96); MEAN PLT VOLUME 9.9 fl (7.5-11.1); MONO % 7.7 % (3.8-10.2); NEUT % 63.9 % (42.8-82.8); PLATELET COUNT 276 K/MM3 (134-434); RBC 4.41 M/mm3 (3.60-5.2); RDW 14.1 % (11.6-15.6); WHITE BLOOD COUNT 6.8 K/mm3 (4.0-10.0)
[2020-06-06 08:43] VITALS: BP 108/69; PULSE 80; TEMP 98
[2020-06-06 08:51] LABS: BLOOD UREA NITROGEN 9.6 mg/dL (7-18); CREATININE 0.8 mg/dL (0.55-1.3); MAGNESIUM 2.1 mg/dL (1.8-2.4); PHOSPHOROUS 5.2 mg/dL (2.5-4.9); POTASSIUM 4.1 mmol/L (3.5-5.1)
[2020-06-06] MEDS ORDERED: REGADENOSON 0.4 MG/5 ML PRE-FILLED SYRINGE IVPUSH ONE ×2 (09:30→11:40)
[2020-06-06] MEDS: PANTOPRAZOLE SODIUM 40 MG VIAL IVPUSH SCH (09:34)
[2020-06-06] MEDS ORDERED: ENOXAPARIN NA (PORCINE) 40 MG/0.4 ML DISP.SYRIN SQ SCH (10:00)
[2020-06-06] MEDS ORDERED: PATIENT'S OWN MEDICATION (NON-FORMULARY) (Levothyroxine Sodium [Synthroid] 137 MCG) PO SCH (10:00)
[2020-06-06] MEDS ORDERED: SERTRALINE HCL 25 MG TABLET (FP) PO SCH (10:00)
[2020-06-06] MEDS ORDERED: PATIENT'S OWN MEDICATION (NON-FORMULARY) (Metoclopramide Hcl [Reglan] 5 MG) PO SCH (10:00)
[2020-06-06] MEDS ORDERED: METOCLOPRAMIDE HCL 10 MG TABLET (FP) PO SCH (10:00)
--- NOTE | 2020-06-06 10:24 | EKG ---
Test Reason : Blood Pressure : / mmHG Vent. Rate : 078 BPM Atrial Rate : 078 BPM P-R Int : 148 ms QRS Dur : 082 ms QT Int : 394 ms P-R-T Axes : 050 026 063 degrees QTc Int : 449 ms NORMAL SINUS RHYTHM T WAVE ABNORMALITY, CONSIDER ANTERIOR ISCHEMIA ABNORMAL ECG WHEN COMPARED WITH ECG OF 05-JUN-2020 09:06, NO SIGNIFICANT CHANGE WAS FOUND Confirmed by REBEKAH HALEY MD ([id number]) on 06/06/2020 10:24:33 AM Referred By: Confirmed By:REBEKAH HALEY MD
--- NOTE | 2020-06-06 10:34 | EKG ---
Test Reason : Blood Pressure : / mmHG Vent. Rate : 090 BPM Atrial Rate : 090 BPM P-R Int : 150 ms QRS Dur : 084 ms QT Int : 366 ms P-R-T Axes : 029 023 063 degrees QTc Int : 447 ms NORMAL SINUS RHYTHM NONSPECIFIC T WAVE ABNORMALITY , CLINICAL CORRELATION REQUIRED ABNORMAL ECG WHEN COMPARED WITH ECG OF 19-MAR-2019 18:02, T WAVE INVERSION NOW EVIDENT IN ANTEROLATERAL LEADS Confirmed by SUDHA BENNETT, REBEKAH ([id number]) on 06/06/2020 10:33:28 AM Referred By: Confirmed By:REBEKAH HALEY MD
[2020-06-06] MEDS ORDERED: AMINOPHYLLINE 250 MG/10 ML VIAL ONE (11:40)
[2020-06-06] MEDS ORDERED: AMINOPHYLLINE 250 MG/10 ML VIAL IVPUSH ONE (12:00)
--- NOTE | 2020-06-06 13:35 | PN ---
Progress Note (short form) - Note Progress Note: Discussed equivocal nuclear stress test with son and patient. Explained that significant coronary blockages cannot be ruled out due to the presence of technical issues with the study and the appearance of TID which may indicate presence of left main dz or 3VCAD. In light of significant ECG changes, her SALAS and this equivocal nuclear stress test I recommended diagnostic LHC for definitive assessment of presence/extent of CAD in order to optimize treatment. This was discussed in detail with son and patient. Patient has refused cath and understands the risks of doing so including unstable angina, IA, cardiac arrhythmia and . Recommend ASA 81mg daily, Toprol 12.5mg daily, adjustment of thyroid medication; she will need close outpatient follow up. Suggest outpatient cath if she agrees or coronary CTA. Plan discussed with primary MD.
--- NOTE | 2020-06-06 14:29 | DS ---
Physical Exam: SUBJECTIVE: Patient seen and examined. Reports improvement of chest discomfort. OBJECTIVE: Vital Signs Temperature 98.0 F 06/06/20 08:40 Pulse Rate 80 06/06/20 08:40 Respiratory Rate 18 06/06/20 12:00 Blood Pressure 108/69 06/06/20 08:40 O2 Sat by Pulse Oximetry (%) 97 06/06/20 12:00 PHYSICAL EXAM GENERAL: The patient is awake, alert, and fully oriented, in no acute distress. NECK: Trachea midline, full range of motion, supple. LUNGS: Breath sounds equal, clear to auscultation bilaterally HEART: Regular rate and rhythm, S1, S2 ABDOMEN: Soft, nontender, nondistended, normoactive bowel sounds NEUROLOGICAL: Cranial nerves II through XII grossly intact. Normal speech PSYCH: Normal mood, normal affect. SKIN: Warm, dry, normal turgor LABS Laboratory Results - last 24 hr 06/05/20 06/05/20 06/06/20 09:17 20:02 06:38 WBC 6.8 RBC 4.41 Hgb 13.1 Hct 39.2 MCV 88.9 MCH 29.7 MCHC 33.4 RDW 14.1 Plt Count 276 MPV 9.9 Absolute Neuts (auto) 4.3 Neutrophils % 63.9 Lymphocytes % 26.1 D Monocytes % 7.7 Eosinophils % 1.4 Basophils % 0.9 Nucleated RBC % 0 Sodium 137 Potassium 4.1 Chloride 103 Carbon Dioxide 27 Anion Gap 7 L BUN 9.0 Creatinine 0.7 Est GFR (CKD-EPI)AfAm 115.45 Est GFR (CKD-EPI)NonAf 99.62 Random Glucose 87 Hemoglobin A1c % Calcium 8.8 Phosphorus Magnesium 1.9 Total Bilirubin 0.5 AST 30 ALT 36 Alkaline Phosphatase 87 Creatine Kinase 80 Troponin I 0.02 Total Protein 7.1 Albumin 3.7 Triglycerides Cholesterol Total LDL Cholesterol HDL Cholesterol Lipase 308 TSH Free T4 Urine Color Yellow Urine Appearance Clear Urine pH 6.5 Ur Specific Preston 1.007 L Urine Protein Negative Urine Glucose (UA) Negative Urine Ketones Negative Urine Blood Negative Urine Nitrite Negative Urine Bilirubin Negative Urine Urobilinogen 0.2 Ur Leukocyte Esterase Trace Urine WBC (Auto) 13 Urine RBC (Auto) 10 Urine Casts (Auto) 0 U Epithel Cells (Auto) 6 Urine Bacteria (Auto) 547 06/06/20 06/06/20 06:38 06:38 WBC RBC Hgb Hct MCV MCH MCHC RDW Plt Count MPV Absolute Neuts (auto) Neutrophils % Lymphocytes % Monocytes % Eosinophils % Basophils % Nucleated RBC % Sodium 142 Potassium 4.1 Chloride 106 Carbon Dioxide 26 Anion Gap 9 BUN 9.6 Creatinine 0.8 Est GFR (CKD-EPI)AfAm 98.24 Est GFR (CKD-EPI)NonAf 84.76 Random Glucose 91 Hemoglobin A1c % 6.2 Calcium 9.0 Phosphorus 5.2 H Magnesium 2.1 Total Bilirubin AST ALT Alkaline Phosphatase Creatine Kinase Troponin I Total Protein Albumin Triglycerides 118 Cholesterol 149 Total LDL Cholesterol 83 HDL Cholesterol 50 Lipase TSH 0.04 L Free T4 1.80 H Urine Color Urine Appearance Urine pH Ur Specific Preston Urine Protein Urine Glucose (UA) Urine Ketones Urine Blood Urine Nitrite Urine Bilirubin Urine Urobilinogen Ur Leukocyte Esterase Urine WBC (Auto) Urine RBC (Auto) Urine Casts (Auto) U Epithel Cells (Auto) Urine Bacteria (Auto) HOSPITAL COURSE: Date of Admission:06/05/20 Date of Discharge: 06/06/20 Patient is a 54F w/ pmh of hypothyroidism, HTN, HLD, recent GERD diagnosis presents to [facility] for complaint of feeling midsternal chest pain described as a 9 of 10 severity "heaviness" with sensation of "air stuck" in her chest. Normal Vitals. EKG with new TWI in V2-V6. Cardiology was consulted and stress test was done. The nuclear stress test was equivocal. LHC was recommended for definitive assessment of presence/extent of CAD, but patient opted to defer the procedure at this time. ASA, Toprol was recommended. Patient was discharged with instructions to follow up closely with PCP and cardiology. Minutes to complete discharge: 37 Discharge Summary Problems reviewed: Yes Reason For Visit: CHEST PAIN Condition: Stable - Instructions Diet, Activity, Other Instructions: Your visit You were admitted to the hospital because you had chest discomfort. you were evaluated by the talent advisor and a stress test was done to check your heart. It is recommended that you undergo additional test including cardiac cat heterization to make sure that there is no blockage in the vessels of your heart. Please follow up with the talent advisor in 1-2 weeks. We have provided a referral. Your thyroid function was also noted to be high. We have decreased your synthroid dose to 100mcg daily. You will need to have a repeat blood work in 1 week to check your thyroid function. Medications Please take the following medications as prescribed: 1. Aspirin 81 mg daily 2. Metoprolol XL 12.5 mg daily 3. Lipitor 40mg daily at bedtime 4. Synthroid decreased to 100mcg daily. Follow up Please follow up with your primary care doctor in 1 week. If you do not have one, we have provided you a referral at the medical clinic at [facility]. You may call the office to schedule an appointment. Please follow up with the talent advisor (Dr. Bobo) in 1-2 weeks. A referral has been provided. Please follow up with your surveillance sensor officer (Dr Ortiz) as scheduled. Additional info Please call 911 or go to the ED if with any worsening fevers, chills, headache, dizziness, chest pain, shortness of breath, belly pain, or any new concerns noted. Referrals: [facility] – [place], [place] [facility] [place] [Provider Group] Jake Bobo MD [Staff Physician] - Saman Ortiz MD [Staff Physician] - Disposition: HOME - Home Medications Comprehensive Discharge Medication List: Ambulatory Orders Sertraline HCl 25 mg PO DAILY 03/19/19 Dexlansoprazole [Dexilant] 60 mg PO DAILY 06/05/20 Linaclotide [Linzess] 72 mcg PO DAILY 06/05/20 Metoclopramide HCl [Reglan] 5 mg PO DAILY 06/05/20 Mirtazapine 7.5 mg PO HS 06/05/20 Aspirin [Adult Aspirin Regimen] 81 mg PO DAILY #30 tablet. 06/06/20 Atorvastatin Ca [Lipitor] 40 mg PO HS #30 tablet 06/06/20 Levothyroxine Sodium [Synthroid] 100 mcg PO DAILY #15 tablet 06/06/20 Metoprolol Succinate [Toprol Xl] 12.5 mg PO DAILY #30 tab.er.24h 06/06/20 This patient is new to me today: Yes Date on this admission: 06/06/20 Emergency Visit: Yes ED Registration Date: 06/05/20 Care time: The patient presented to the Emergency Department on the above date and was hospitalized for further evaluation of their emergent condition. Critical Care patient: No - Discharge Referral Referred to [facility] No ATTENDING PHYSICIAN STATEMENT I saw and evaluated the patient. I reviewed the resident's note and discussed the case with the resident. I agree with the resident's findings and plan as documented. SUBJECTIVE: OBJECTIVE: ASSESSMENT AND PLAN:
== END 2020-06-06 14:57 | disposition home or self-care (01) ==
LOC: JER 08:56 → JERBED 10:45 → UNDOADMOB 10:45 → INTOOBSV 10:45 → JERBED 12:34 → J4W 20:44
PROVIDERS: ADMIT Internal Medicine
PROC: 3E023GC Introduction of Other Therapeutic Substance into Muscle, Percutaneous Approach (ICD-10-PCS; principal; 2020-06-05)
PROC: 3E033GC Introduction of Other Therapeutic Substance into Peripheral Vein, Percutaneous Approach (ICD-10-PCS; 2020-06-05)
DX: E07.9 Disorder of thyroid, unspecified (principal); I10 Essential (primary) hypertension; E78.5 Hyperlipidemia, unspecified; R73.03 Prediabetes; K21.9 Gastro-esophageal reflux disease without esophagitis; D50.0 Iron deficiency anemia secondary to blood loss (chronic); Z29.9 Encounter for prophylactic measures, unspecified; N94.9 Unspecified condition associated with female genital organs and menstrual cycle
CPT/HCPCS: 36415; 71045-TC-FY; 78452-TC; 80048; 80053; 80061; 81003; 82550; 83036; 83690; 83721; 83735; 84100; 84439; 84443; 84484; 85025; 85610; 86140; 93005; 93010; 93017; 93306-TC; 96372; 96374; 96375; 99285-25; A9502; G0378; J2785; U0003

== ENCOUNTER 2023-06-30 16:31 | Emergency (ER) | payer OTHER ==
[2023-06-30 16:48] VITALS: BP 135/94; PULSE 68; RESP 16; TEMP 97.9; BMI 28.1
[2023-06-30] MEDS ORDERED: ACETAMINOPHEN 500 MG TABLET (FP) PO ONE (18:35)
[2023-06-30] MEDS ORDERED: ACETAMINOPHEN 500 MG TABLET (FP) ONE (18:46)
== END 2023-06-30 19:12 | disposition home or self-care (01) ==
LOC: JER 16:31
PROC: 2W3FX1Z Immobilization of Left Hand using Splint (ICD-10-PCS; principal; 2023-06-30)
DX: S62.102A Fracture of unspecified carpal bone, left wrist, initial encounter for closed fracture (principal); M25.532 Pain in left wrist; W01.0XXA Fall on same level from slipping, tripping and stumbling without subsequent striking against object, initial encounter; Y93.01 Activity, walking, marching and hiking; Y99.0 Civilian activity done for income or pay
CPT/HCPCS: 73110-TC-LT-FY; 73130-TC-LT-FY; 99283-25